=== PATIENT | male | born 1985 | race Hispanic/Latino ===

== ENCOUNTER 2018-07-19 16:45 | Emergency (ER) | payer OTHER ==
[~2018-07-19 16:45] MED LIST: ISOVUE-370 76%-LOCM 1 ML ONE; Iopamidol 370 76% 50 ML VIAL FS ONE
[2018-07-19 18:19] LABS: #Eosinphils 0.2 thou/uL (0.0-0.7); #Lymphocytes 1.7 thou/uL (1.20-3.40); #Monocytes 0.5 thou/uL (0.11-0.59); #Neutrophils 2.7 thou/uL (1.40-6.50); %Basophils 0.6 % (0.0-1.0); %Eosinophils 4.2 % (0.0-10.0); %Lymphocytes 33.3 % (21.0-51.0); %Monocytes 10.3 % (0.0-10.0); %Neutrophils 51.6 % (42.0-75.0); Hemoglobin 14.1 g/dL (14.0-18.0); Mean Corpuscular HGB CONC 34.3 g/dL (32.0-36.0); Mean Corpuscular Hemoglobin 31.7 pg (27.0-31.0); Mean Corpuscular Volume 92.6 fL (78.0-98.0); Mean Platelet Volume 6.4 fL (7.4-10.4); Platelet Count 268 thou/uL (130-400); RBC Distribution Width 12.1 % (11.5-14.5); Red Blood Cell (RBC) Count 4.46 mill/uL (4.70-6.10); White Blood Cell (WBC) Count 5.2 thou/uL (4.8-10.8)
[2018-07-19 18:50] LABS: ALT (SGPT) 24 U/L (8-55); AST (SGOT) 14 U/L (5-34); Albumin 4.1 g/dL (3.5-5.0); Alkaline Phosphatase 59 U/L (40-150); Anion Gap 11 mmol/L (10-20); BUN (Urea Nitrogen) 9 mg/dL (8.9-20.6); Bilirubin, Total 0.3 mg/dL (0.2-1.2); Calc. Creatinine Clearance 0 mL/min (70-130); Carbon Dioxide 26 mmol/L (22-29); Chloride 109 mmol/L (98-107); Estimated GFR-MDRD 86; Globulin 2.7 g/dL (2.4-3.5); Glucose 91 mg/dL (70-105); Lipase 32 U/L (8-78); Potassium 3.9 mmol/L (3.5-5.1); Protein, Total 6.8 g/dL (6.0-8.3); Sodium 142 mmol/L (136-145)
[2018-07-19] MEDS ORDERED: Ondansetron PF 4 MG/2 ML Vial ONE (19:58)
[2018-07-19] MEDS ORDERED: Morphine 4 MG/ML VIAL ONE (19:58)
[2018-07-19 20:25] LABS: Bilirubin Small (Negative); Blood, Urine Negative (Negative); Clarity CLEAR (Clear); Glucose, Urine (Dipstick) Negative (Negative); Leukocyte Trace (Negative); Nitrite Negative (Negative); Protein, Urine (Dipstick) Negative (Neg-Trace); Specific Gravity, Urine 1.028 (1.002-1.036)
[2018-07-19 20:29] LABS: Bacteria/HPF None Seen HPF (None Seen); Hyaline Casts/LPF 7-10 HYALINE CAST LPF (0-3 Hyaline); Pathc Cast-AUWi Flag 0.72 (0-2.49); RBC/HPF 0-3 HPF (0-3); Squamous Epithelial None Seen HPF (0-3); WBC/HPF 0-3 HPF (0-3)
--- NOTE | 2018-07-19 21:29 | CT ---
CT ABDOMEN WITH CONTRAST CT PELVIS WITH CONTRAST: DATE: 07/19/18 at 8:23 p.m. HISTORY: 32-year-old male with acute left upper quadrant abdominal pain. COMPARISON: None. TECHNIQUE: IV injection of iodinated contrast media: Isovue Oral contrast media: Small amount administered. FINDINGS: There are numerous bilateral tiny renal calculi mostly on the order of 1 and 2 mm in size each, left greater than right, at the upper, mid, and lower poles. The largest calculus is a 4 mm round calculus at a left renal mid pole. There is no hydronephrosis. No striations of the nephrograms to indicate p yelonephritis. The abdominal aorta, adrenals, pancreas, spleen, liver, and appendix, are normal. No a scites or pneumoperitoneum. No evidence of colonic diverticulitis. No small bowel dilation. Lung base s are grossly clear. Urinary bladder is nearly empty. IMPRESSION: 1. Bilateral nephrolithiasis. 2. No acute findings. JACOB Dorman POS: [facility]
== END 2018-07-19 21:11 | disposition home or self-care (01) ==
LOC: ERS 16:45
DX: R10.12 Left upper quadrant pain (principal); K21.9 Gastro-esophageal reflux disease without esophagitis; J45.909 Unspecified asthma, uncomplicated; F17.210 Nicotine dependence, cigarettes, uncomplicated
CPT/HCPCS: 36415; 74177; 80053; 81003; 81015; 83690; 85025; 96374; 96375; J2270; J2405

== ENCOUNTER 2018-08-18 07:41 | Emergency (ER) | payer OTHER ==
[2018-08-18] MEDS ORDERED: Ibuprofen 200 MG TAB ONE (08:18)
[2018-08-18] MEDS ORDERED: Acetaminophen 325 MG/10.15 ML UDCUP ONE (08:25)
== END 2018-08-18 08:36 | disposition home or self-care (01) ==
LOC: ERS 07:41
DX: H60.93 Unspecified otitis externa, bilateral (principal); K21.9 Gastro-esophageal reflux disease without esophagitis; J45.909 Unspecified asthma, uncomplicated; F17.210 Nicotine dependence, cigarettes, uncomplicated
CPT/HCPCS: 99282

== ENCOUNTER 2019-06-04 11:00 | Outpatient (CLI) | payer OTHER ==
--- NOTE | 2019-06-04 12:05 | RAD ---
LEFT KNEE 2 VIEWS: HISTORY: Left lateral knee pain. FINDINGS/IMPRESSION: No fracture, dislocation, or bony destruction is seen. POS: [facility]
--- NOTE | 2019-06-04 12:08 | RAD ---
LEFT HIP TWO VIEWS: HISTORY: Left hip pain. FINDINGS: No fracture, dislocation or bony destruction is identified. POS: [facility]
--- NOTE | 2019-06-04 12:08 | RAD ---
RIGHT HIP TWO VIEWS: HISTORY: Right hip pain. FINDINGS: No fracture, dislocation or bony destruction is seen. POS: [facility]
--- NOTE | 2019-06-04 12:09 | RAD ---
LUMBAR SPINE TWO VIEWS: HISTORY: Low back pain. FINDINGS: There is minimal dextroscoliosis of the lumbar spine. No fracture, subluxation or bony destruction is identified. POS: [facility]
== END 2019-06-04 11:01 | disposition home or self-care (01) ==
LOC: BICRAD 11:00
PROVIDERS: ATTEND Family Medicine
DX: M25.552 Pain in left hip (principal); M25.551 Pain in right hip; M25.562 Pain in left knee; M54.5 Low back pain
CPT/HCPCS: 72100